=== PATIENT | female | born 1995 | race Caucasian/White ===

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

== ENCOUNTER 2017-03-02 07:49 | Inpatient (IN) | payer MEDICAID, OTHER ==
[~2017-03-02] VITALS: Ht 167.6 cm; Wt 51.5 kg
[2017-03-02] VITALS (10 sets, daily range): BP systolic 97–143; BP diastolic 53–74; PULSE 117–130; RESP 18–24; TEMP 96.3–98.9; O2SAT 87–92
[~2017-03-02 07:49] MED LIST changes: +ALBU.5I NEB; +AZIT250T3 PO; +PRED20 PO
--- NOTE | 2017-03-02 08:14 | PD ---
HPI Chief Complaint: Respiratory Symptoms Time Seen by Provider: 08:02 Travel History International Travel<30 days: No Contact w/Intl Traveler<30days: No Traveled to known affect area: No History of Present Illness HPI 21-year-old young woman history of asthma with previous ICU admissions presents emergency department complaining of worsening asthma symptoms. She states that over the past week or so since the weather change having progressive worsening trouble with her breathing. She been using her nebulizers at home but hasn't really been helping. She's had a productive cough but no fevers or chills. States it feels similar to her asthma in the past. She has chest tightness. No leg swelling. No abdominal pain, nausea vomiting, or other symptoms. History Past Medical History Narrative Medical Asthma Tetanus Vaccination: < 5 Years Influenza Vaccination: Yes LMP: 02/23/17 : 0 Para: 0 Past Surgical History Surgical History: No Previous Surgery Social History Alcohol Use: No Tobacco Use: No Allergies-Medications (Allergen,Severity, Reaction): Coded Allergies: iodine (Unverified Allergy, Severe, 03/02/17) potassium iodide (Unverified Allergy, Severe, 03/02/17) povidone-iodine (Unverified Allergy, Severe, 03/02/17) sodium iodide (Unverified Allergy, Severe, 03/02/17) sodium iodide (Unverified Allergy, Severe, 03/02/17) Uncoded Allergies: SHELLFISH (Allergy, Severe, Swelling, 09/01/05) Reported Meds & Prescriptions Reported Meds & Active Scripts Active Albuterol Neb (Albuterol Sulfate) 2.5 Mg/0.5 Ml Neb 2.5 Mg NEB Q6HR NEB Note: The Albuterol Sulfate Inhalation Solution is concentrated and must be diluted. Read complete instructions carefully before using. Proventil Hfa 6.7 GM Inh (Albuterol Sulfate) 90 Mcg/Act Aer 1 Puff INH Q4H PRN Reported Singulair (Montelukast Sodium) 10 Mg Tab 10 Mg PO HS Review of Systems Except as stated in HPI: all other systems reviewed are Neg Physical Exam Narrative GENERAL: 21-year-old young woman, anxious, mild respiratory distress. SKIN: Focused skin assessment warm/dry. HEAD: Atraumatic. Normocephalic. EYES: Pupils equal and round. No scleral icterus. No injection or drainage. ENT: No nasal bleeding or discharge. Mucous membranes pink and moist. NECK: Trachea midline. No JVD. CARDIOVASCULAR: Regular rate and rhythm. No murmur appreciated. RESPIRATORY: Mild respiratory distress. Tight wheezing throughout the posterior lung saavedra with prolonged expiratory phase slightly diminished air movement. GASTROINTESTINAL: Abdomen soft, non-tender, nondistended. Hepatic and splenic margins not palpable. MUSCULOSKELETAL: No obvious deformities. No edema. NEUROLOGICAL: Awake and alert. No obvious cranial nerve deficits. Motor grossly within normal limits. Normal speech. PSYCHIATRIC: Anxious appearing. Data Data Last Documented VS Vital Signs Date Time Temp Pulse Resp B/P (MAP) Pulse Ox O2 Delivery O2 Flow Rate FiO2 03/02/17 11:00 91 Nasal Cannula 3.00 03/02/17 07:50 98.9 129 20 143/74 (97) Orders Orders Complete Blood Count With Diff (03/02/17 08:08) Basic Metabolic Panel (Bmp) (03/02/17 08:08) Iv Access Insert/Monitor (03/02/17 08:08) Ecg Monitoring (03/02/17 08:08) Oximetry (03/02/17 08:08) Oxygen Administration (03/02/17 08:08) Sodium Chloride 0.9% Flush (Ns Flush) (03/02/17 08:15) Methylprednisolone So Succ Inj (Solumedr (03/02/17 08:15) Albuterol-Ipratropium Neb (Duoneb Neb) (03/02/17 08:15) Magnesium Sulfate 1 Gm Premix (Magnesium (03/02/17 08:15) Ed Urine Pregnancytest Poc (03/02/17 08:09) Albuterol-Ipratropium Neb (Duoneb Neb) (03/02/17 11:00) Admit Order (Ed Use Only) (03/02/17 ) Place In Observation (03/02/17 ) Vital Signs (Adult) Q4H (03/02/17 11:29) Activity Oob Ad Lyn (03/02/17 11:29) Diet Regular Basic (03/02/17 Lunch) Sodium Chloride 0.9% Flush (Ns Flush) (03/02/17 21:00) Sodium Chloride 0.9% Flush (Ns Flush) (03/02/17 11:30) Albuterol Neb (Albuterol Neb) (03/02/17 11:30) Albuterol-Ipratropium Neb (Duoneb Neb) (03/02/17 16:00) Methylprednisolone So Succ Inj (Solumedr (03/02/17 12:00) Azithromycin (Zithromax) (03/02/17 12:00) Labs Laboratory Tests Test 03/02/17 08:20 White Blood Count 13.5 TH/MM3 Red Blood Count 5.18 MIL/MM3 Hemoglobin 16.0 GM/DL Hematocrit 46.9 % Mean Corpuscular Volume 90.5 FL Mean Corpuscular Hemoglobin 30.9 PG Mean Corpuscular Hemoglobin Concent 34.2 % Red Cell Distribution Width 13.9 % Platelet Count 274 TH/MM3 Mean Platelet Volume 8.1 FL Neutrophils (%) (Auto) 81.0 % Lymphocytes (%) (Auto) 9.0 % Monocytes (%) (Auto) 9.0 % Eosinophils (%) (Auto) 0.7 % Basophils (%) (Auto) 0.3 % Neutrophils # (Auto) 10.9 TH/MM3 Lymphocytes # (Auto) 1.2 TH/MM3 Monocytes # (Auto) 1.2 TH/MM3 Eosinophils # (Auto) 0.1 TH/MM3 Basophils # (Auto) 0.0 TH/MM3 CBC Comment DIFF FINAL Differential Comment Blood Urea Nitrogen 7 MG/DL Creatinine 0.69 MG/DL Random Glucose 87 MG/DL Calcium Level 9.0 MG/DL Sodium Level 139 MEQ/L Potassium Level 3.9 MEQ/L Chloride Level 108 MEQ/L Carbon Dioxide Level 19.7 MEQ/L Anion Gap 11 MEQ/L Estimat Glomerular Filtration Rate 110 ML/MIN [facility] Medical Decision Making Medical Screen Exam Complete: Yes Emergency Medical Condition: Yes Interpretation(s) LABS: CBC is unremarkable CMP unremarkable Differential Diagnosis Asthma exacerbation, URI, pneumonia, pneumothorax, other Narrative Course Medical decision making INITIAL: 21-year-old young woman presents emergent department arrest or distress suggestive of moderate asthma exacerbation. She is on 2 L and still satting about 92%. She is anxious with mild to moderate respiratory distress. We'll give steroids, bronchodilators, magnesium, hold on chest x-ray or further imaging for now. Reassess. FINAL: Patient with continued oxygen requirement and moderate symptoms, will plan on admission for observation. Physician Communication Physician Communication Spoke with lissette Momin. Diagnosis Primary Impression: Asthma exacerbation Admitting Information Admitting Physician Requests: Observation Miguel Morales MD Mar 02, 2017 08:14
[2017-03-02] MEDS ORDERED: methylPREDNISolone SOD SUCC 125 MG/2 ML VIAL IV PUSH ONE (08:15)
[2017-03-02] MEDS ORDERED: SODIUM CHLORIDE 0.9% FLUSH 10 ML FLUSH IVF PRN (08:15)
[2017-03-02] MEDS: RESP: ALBUTEROL 2.5 MG/IPRATROPIUM 0.5 MG NEB (SCH) INH (08:19)
[2017-03-02] MEDS: MAGNESIUM SULFATE 1 GM PREMIX 100 ML IV SCH ×2 (08:49→09:49)
[2017-03-02 08:55] LABS: AUTOMATED NEUTROPHIL # 10.9 TH/MM3 (1.8-7.7); BASOPHIL % 0.3 % (0.0-2.0); EOSINOPHIL # 0.1 TH/MM3 (0-0.4); EOSINOPHIL % 0.7 % (0.0-4.0); HEMATOCRIT 46.9 % (35.0-46.0); LYMPHOCYTE # 1.2 TH/MM3 (1.0-4.8); MEAN CELL VOLUME 90.5 FL (80.0-100.0); MEAN CORPUSCULAR HEMOGLOBIN 30.9 PG (27.0-34.0); MEAN CORPUSCULAR HGB CONC 34.2 % (32.0-36.0); MEAN PLATELET VOLUME 8.1 FL (7.0-11.0); MONOCYTE # 1.2 TH/MM3 (0-0.9); PLATELET COUNT 274 TH/MM3 (150-450); RED BLOOD COUNT 5.18 MIL/MM3 (4.00-5.30); RED CELL DISTRIBUTION WIDTH 13.9 % (11.6-17.2); WHITE BLOOD COUNT 13.5 TH/MM3 (4.0-11.0)
[2017-03-02 09:18] LABS: BICARBONATE 19.7 MEQ/L (21.0-32.0); CREATININE 0.69 MG/DL (0.50-1.00)
[2017-03-02] MEDS ORDERED: RESP: ALBUTEROL 2.5 MG/IPRATROPIUM 0.5 MG NEB (SCH) NEB ONE (11:00)
[2017-03-02] MEDS ORDERED: RESP: ALBUTEROL 2.5 MG/3 ML NEB (PRN) NEB (11:30)
[2017-03-02] MEDS ORDERED: SODIUM CHLORIDE 0.9% FLUSH 10 ML FLUSH IV FLUSH PRN (11:30)
[2017-03-02] MEDS ORDERED: methylPREDNISolone SOD SUCC 125 MG/2 ML VIAL IV PUSH SCH (12:00)
[2017-03-02] MEDS: AZITHROMYCIN 250 MG TAB PO SCH (12:10)
[2017-03-02] MEDS: RESP: ALBUTEROL 2.5 MG/IPRATROPIUM 0.5 MG NEB (SCH) NEB ×2 (15:27→19:50)
--- NOTE | 2017-03-02 17:16 | HHI.HP ---
[facility] No Primary Care Physician Admission Diagnosis Acute Ashtma Exacerbation Diagnoses: Travel History International Travel<30 Days: No Contact w/Intl Traveler <30 Da: No Traveled to Known Affected Are: No Sepsis Criteria SIRS Criteria (2 or more): Heart rate over 90, WBC > 67560, < 4000 or > 10% bands History of Present Illness 21 yr old pleasant female w PMHx of asthma presents w severe sob since tuesday. 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 She started wheezing and feeling SOB on tuesday. She thinks that the cold weather caused her asthma to flair up. She owns a dog, her father has a cat at home that doesn't usually stay in the house, but mom does have a cat that is in the house. pt states that she has been coughing a lot, has a sore throat, denies any fevers or chills. mild abdominal pain. She has been getting coughing spells which makes her SOB a lot worst. at times gets nauseous from coughing but no vomiting. Sister was recently diagnosed w strep throat. no other sick contacts. Yesterday her SOB was so bad, she did 5-6 breathing treatments w no improvement and also used her albuterol inhaler that she decided to come in today for evaluation. Pt has never been evaluated by a regional economic liaison. Has about 2-3 asthma attacks a year. She was diagnosed w PNA in november of this year. coughing makes her chest hurt. Review of Systems Except as stated in HPI: all other systems reviewed are Neg Past Family Social History Past Medical History asthma Past Surgical History none Reported Medications Reported Meds & Active Scripts Active Albuterol Neb (Albuterol Sulfate) 2.5 Mg/0.5 Ml Neb 2.5 Mg NEB Q6HR NEB Note: The Albuterol Sulfate Inhalation Solution is concentrated and must be diluted. Read complete instructions carefully before using. Proventil Hfa 6.7 GM Inh (Albuterol Sulfate) 90 Mcg/Act Aer 1 Puff INH Q4H PRN Reported Singulair (Montelukast Sodium) 10 Mg Tab 10 Mg PO HS Allergies: Coded Allergies: iodine (Unverified Allergy, Severe, 03/02/17) potassium iodide (Unverified Allergy, Severe, 03/02/17) povidone-iodine (Unverified Allergy, Severe, 03/02/17) sodium iodide (Unverified Allergy, Severe, 03/02/17) sodium iodide (Unverified Allergy, Severe, 03/02/17) Uncoded Allergies: SHELLFISH (Allergy, Severe, Swelling, 09/01/05) Family History mom: healthy father: hx of pericarditis Social History denies any smoking, alcohol use or illegal drug use Physical Exam Vital Signs Vital Signs Date Time Temp Pulse Resp B/P (MAP) Pulse Ox O2 Delivery O2 Flow Rate FiO2 03/02/17 16:30 92 Nasal Cannula 3.00 Humidified 03/02/17 15:29 90 Nasal Cannula 3.00 03/02/17 15:04 98.6 130 24 116/68 (84) 92 03/02/17 13:48 96.3 125 22 113/53 (73) 89 03/02/17 13:27 03/02/17 13:17 92 Nasal Cannula 3.00 03/02/17 11:00 91 Nasal Cannula 3.00 03/02/17 08:20 92 Nasal Cannula 2.00 03/02/17 07:50 98.9 129 20 143/74 (97) 91 Room Air Physical Exam GENERAL: This is a well-nourished, well-developed patient, appears uncomfortable , however able communicate in full sentences. SKIN: No rashes, ecchymoses or lesions. Cool and dry. HEAD: Atraumatic. Normocephalic. No temporal or scalp tenderness. EYES: Pupils equal round and reactive. Extraocular motions intact. ENT: Nose without drainage. Throat without mild erythema, tonsillar hypertrophy but no exudate noted. Uvula midline. Airway patent. NECK: Trachea midline. No JVD or lymphadenopathy. Supple, nontender, no meningeal signs. CARDIOVASCULAR: tachycardic without murmurs, gallops, or rubs. RESPIRATORY: Clear to auscultation. Breath sounds equal bilaterally. expiratory wheezes throughout GASTROINTESTINAL: Abdomen soft, non-tender, nondistended. No palpable masses. No guarding. MUSCULOSKELETAL: Extremities without edema. No joint tenderness, effusion, or edema noted. No calf tenderness. Negative Homans sign bilaterally. NEUROLOGICAL: Awake and alert. Cranial nerves II through XII intact. Motor and sensory grossly within normal limits. Five out of 5 muscle strength in all muscle groups. Normal speech. Laboratory Laboratory Tests Test 03/02/17 08:20 White Blood Count 13.5 Red Blood Count 5.18 Hemoglobin 16.0 Hematocrit 46.9 Mean Corpuscular Volume 90.5 Mean Corpuscular Hemoglobin 30.9 Mean Corpuscular Hemoglobin Concent 34.2 Red Cell Distribution Width 13.9 Platelet Count 274 Mean Platelet Volume 8.1 Neutrophils (%) (Auto) 81.0 Lymphocytes (%) (Auto) 9.0 Monocytes (%) (Auto) 9.0 Eosinophils (%) (Auto) 0.7 Basophils (%) (Auto) 0.3 Neutrophils # (Auto) 10.9 Lymphocytes # (Auto) 1.2 Monocytes # (Auto) 1.2 Eosinophils # (Auto) 0.1 Basophils # (Auto) 0.0 CBC Comment DIFF FINAL Differential Comment Blood Urea Nitrogen 7 Creatinine 0.69 Random Glucose 87 Calcium Level 9.0 Sodium Level 139 Potassium Level 3.9 Chloride Level 108 Carbon Dioxide Level 19.7 Anion Gap 11 Estimat Glomerular Filtration Rate 110 Result Diagram: 03/02/1781903/02/17819 Caprini VTE Risk Assessment Caprini VTE Risk Assessment: No/Low Risk (score <= 1) Caprini Risk Assessment Model Point Value = 1 Point Value = 2 Point Value = 3 Point Value = 5 Age 41-60 Minor surgery BMI > 25 kg/m2 Swollen legs Varicose veins or History of unexplained or recurrent spontaneous Oral contraceptives or hormone replacement Sepsis (< 1 month) Serious lung disease, including pneumonia (< 1 month) Abnormal pulmonary function Acute myocardial infarction Congestive heart failure (< 1 month) History of inflammatory bowel disease Medical patient at bed rest Age 61-74 Arthroscopic surgery Major open surgery (> 45 min) Laparoscopic surgery (> 45 min) Malignancy Confined to bed (> 72 hours) Immobilizing plaster cast Central venous access Age >= 75 History of VTE Family history of VTE Factor V Leiden Prothrombin [id number] Lupus anticoagulant Anticardiolipin antibodies Elevated serum homocysteine Heparin-induced thrombocytopenia Other congenital or acquired thrombophilia Stroke (< 1 month) Elective arthroplasty Hip, pelvis, or leg fracture Acute spinal cord injury (< 1 month) Prophylaxis Regimen Total Risk Factor Score Risk Level Prophylaxis Regimen 0-1 Low Early ambulation 2 Moderate Order ONE of the following: *Sequential Compression Device (SCD) *Heparin 5000 units SQ BID 3-4 Higher Order ONE of the following medications: *Heparin 5000 units SQ TID *Enoxaparin/Lovenox 40 mg SQ daily (WT < 150 kg, CrCl > 30 mL/min) *Enoxaparin/Lovenox 30 mg SQ daily (WT < 150 kg, CrCl > 10-29 mL/min) *Enoxaparin/Lovenox 30 mg SQ BID (WT < 150 kg, CrCl > 30 mL/min) AND/OR *Sequential Compression Device (SCD) 5 or more Highest Order ONE of the following medications: *Heparin 5000 units SQ TID (Preferred with Epidurals) *Enoxaparin/Lovenox 40 mg SQ daily (WT < 150 kg, CrCl > 30 mL/min) *Enoxaparin/Lovenox 30 mg SQ daily (WT < 150 kg, CrCl > 10-29 mL/min) *Enoxaparin/Lovenox 30 mg SQ BID (WT < 150 kg, CrCl > 30 mL/min) AND *Sequential Compression Device (SCD) Assessment and Plan Problem List: (1) Asthma exacerbation ICD Code: J45.901 - Unspecified asthma with (acute) exacerbation Status: Acute (2) Nausea & vomiting ICD Code: R11.2 - Nausea with vomiting, unspecified Status: Acute Assessment and Plan asthma exacerbation: SOB and wheezing x 3 days, s/p 5-6 breathing treatments at home w not much improvement. Received magnesium, duoneb and solu-medrol in the ED. Continue breathing treatments scheduled and prn, solumedrol 40mg IV q6hrs, start her on azithromycin 500mg po daily x 5 days. I discussed the case w Dr. Funez, regional economic liaison public relations assistant. He will evaluate the patient in the morning. continue supplemental oxygen as needed to maintain sats>92%. Pt able to speak in full sentences at this time. States she feels better but still w SOB. antitussive meds in place. Pt may need a walk test prior to discharge. Would benefit from PFTs once exacerbation resolved. check chest x-ray. if worsening get ABG's sore throat: sister diagnosed w strep throat. check Group A strep/cultures, although on exam no exudates noted but tonssils are enlarged and mildly erythematous. on azithro for now. nausea: zofran prn DVT: encourage ambulation Code Status full Discussed Condition With patient, RN, Dr. Funez and pt's father Tracey Alcala MD Mar 02, 2017 17:16
--- NOTE | 2017-03-02 17:59 | RADRPT ---
EXAM DATE/TIME: 03/02/2017 17:17 [facility] COMPARISON: CHEST SINGLE AP, December 19, 2016, 9:59. INDICATIONS : Short of breath. MEDICAL HISTORY : Asthma. Pneumonia. SURGICAL HISTORY : None. ENCOUNTER: Initial ACUITY: 1 day PAIN SCORE: 0/10 LOCATION: Bilateral chest FINDINGS: A single view of the chest demonstrates the lungs to be symmetrically aerated without evidence of mas s, infiltrate or effusion. The cardiomediastinal contours are unremarkable. Osseous structures are intact. Nipple rings. CONCLUSION: No acute disease. Damon Gutiérrez MD FACR on March 02, 2017 at 17:57 Board Certified Radiologist. This report was verified electronically.
[2017-03-02] MEDS ORDERED: guaiFENesin SOLUTION 200 MG/10 ML CUP PO PRN (18:00)
[2017-03-02] MEDS: methylPREDNISolone SOD SUCC 40 MG/1 ML VIAL IV PUSH SCH ×2 (18:00→23:51)
[2017-03-02] MEDS: DIPHENHY/LIDO/MAG/ALUM MOUTHWASH (Adult/Peds) 60 ML BTL SWISH-SWAL SCH (21:36)
[2017-03-02] MEDS: SODIUM CHLORIDE 0.9% FLUSH 10 ML FLUSH IV FLUSH SCH (21:37)
[2017-03-03] VITALS (9 sets, daily range): BP systolic 94–133; BP diastolic 55–70; PULSE 64–109; RESP 15–24; TEMP 96.9–98.2; O2SAT 89–96
[2017-03-03] MEDS: RESP: ALBUTEROL 2.5 MG/IPRATROPIUM 0.5 MG NEB (SCH) NEB ×4 (03:02→19:28)
[2017-03-03] MEDS: methylPREDNISolone SOD SUCC 40 MG/1 ML VIAL IV PUSH SCH ×4 (06:01→23:45)
--- NOTE | 2017-03-03 06:08 | MB ---
cc: Christine MERRILL M.D. 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 She has had several exacerbations this year including four emergency room visits since May. She had pneumonia in September of last year and again in November of this year. Her typical regimen has been albuterol. She is on Singulair. She has used Advair and other inhaled steroids over the course of her life but in the last 2 years has not been on a consistent inhaled steroid regimen. She has had a cough, minimal sputum, clear. No hemoptysis. No purulent sputum. No fever. This illness has been over the course of the last four or five days. She was not responding to her albuterol nebulizer which is why she came to the emergency room. In early childhood coordinator she was tested for allergies. She was allergic to dust. She has had clinical symptoms related to shellfish with swelling and asthma. She avoids those. She has never been in respiratory failure related to asthma. PAST SURGICAL HISTORY No prior surgeries. PAST MEDICAL HISTORY No other medical illnesses. FAMILY HISTORY Parents both alive and well. A sister with some mild allergies. REVIEW OF SYSTEMS No frontal headaches. No significant sinus congestion. No prior history of sinus disease. No nausea or vomiting. Of significance, she does get indigestion periodically. No history of ulcer disease. No recent change in bowel habits. No swelling. SOCIAL HISTORY She has never smoked. Denies alcohol or illicit drug use although her Dad is in the room at the time of this interview so I will ask her those privately if I can. PHYSICAL EXAMINATION GENERAL: Awake, alert, comfortable, afebrile. VITAL SIGNS: Respirations 18-20, pulse is 100 and regular, O2 sat is 92% on 2-3 liters nasal. HEENT: No sinus tenderness to percussion. Mucous membranes are moist. NECK: Neck veins are flat. No adenopathy in the neck or supraclavicular region. LUNGS: Diffuse wheezing. Mild to moderate, without congestion. HEART: Regular rhythm. No harsh murmur. ABDOMEN: Soft. EXTREMITIES: No peripheral edema, calf tenderness or clubbing. CHEST X-RAY Clear. LABORATORY DATA Throat cultures pending. White count is 13.5, hemoglobin 16. DISCUSSION Ms. Black presents with an asthma exacerbation. She is on no inhaled steroid at this point and we discussed the importance of that going forward particularly in light of the fairly frequent exacerbations. We will also check peak flows and tomorrow I will do a simple spirometry to see what her baseline is at present. That will help determine when she could be discharged too. We will continue aerosol therapy with the Zithromax and IV corticosteroids for now and tomorrow I will start her on Symbicort. I emphasized to she and her father who is at the bedside tonight that she will need consistent followup and consistent use of inhaled corticosteroid at the present. They are in the midst of arranging for a new primary care and she has Medicaid pending. Case management is involved trying to help them with some medications until she gets her insurance. R. MD TERE [place]/BRISEYDA /6:28 PM /5:57 AM
[2017-03-03] MEDS: AZITHROMYCIN 250 MG TAB PO SCH (08:27)
[2017-03-03] MEDS: BUDESONIDE-FORMOTEROL 160/4.5 MCG INHALER INH SCH ×2 (08:27→22:24)
[2017-03-03] MEDS: DIPHENHY/LIDO/MAG/ALUM MOUTHWASH (Adult/Peds) 60 ML BTL SWISH-SWAL SCH ×4 (08:28→21:52)
[2017-03-03] MEDS: SODIUM CHLORIDE 0.9% FLUSH 10 ML FLUSH IV FLUSH SCH ×2 (08:29→21:52)
[2017-03-03] MEDS ORDERED: INFLUENZA VIRUS VACCINE (QUADRIVALENT) 0.5 ML SYR IM ONE (10:00)
--- NOTE | 2017-03-03 10:04 | HHI.PR ---
Subjective Remarks Follow-up for asthma exacerbation. Patient is currently doing well. Denies any chest pain, shortness of breath, fever or chills. However without supplemental oxygen her oxygen saturation drops to 88%. She is requiring 2-3 L of oxygen via nasal cannula. Objective Vitals Vital Signs Date Time Temp Pulse Resp B/P (MAP) Pulse Ox O2 Delivery O2 Flow Rate FiO2 03/03/17 09:06 3.00 03/03/17 07:59 90 Nasal Cannula 4.00 03/03/17 07:49 98.0 109 24 106/65 (79) 89 03/03/17 04:03 98.2 104 20 94/55 (68) 92 03/02/17 23:56 92 03/02/17 23:42 97.9 117 20 97/53 (68) 87 03/02/17 21:05 98.2 127 18 108/56 (73) 92 03/02/17 19:56 92 Nasal Cannula 3.00 03/02/17 19:00 92 Nasal Cannula 2.00 03/02/17 16:30 92 Nasal Cannula 3.00 Humidified 03/02/17 15:29 90 Nasal Cannula 3.00 03/02/17 15:04 98.6 130 24 116/68 (84) 92 03/02/17 13:48 96.3 125 22 113/53 (73) 89 03/02/17 13:27 03/02/17 13:17 92 Nasal Cannula 3.00 03/02/17 11:00 91 Nasal Cannula 3.00 I/O 03/02/17 03/02/17 03/02/17 03/03/17 03/03/17 03/03/17 07:00 15:00 23:00 07:00 15:00 23:00 Intake Total 100 ml Balance 100 ml Intake IV Total 100 ml Result Diagram: 03/02/17 0820 03/02/17 0820 Imaging Last Impressions Chest X-Ray 03/02/17 0000 Signed Impressions: Service Date/Time: Thursday, March 02, 2017 17:17 - CONCLUSION: No acute disease. Damon Gutiérrez MD FACR Objective Remarks GENERAL: Alert, oriented 3, NAD. SKIN: Warm and dry. HEAD: Normocephalic. EYES: No scleral icterus. No injection or drainage. NECK: Supple, trachea midline. No JVD or lymphadenopathy. CARDIOVASCULAR: Regular rate and rhythm without murmurs, gallops, or rubs. RESPIRATORY: Breath sounds equal bilaterally. No accessory muscle use. No appreciable wheezing. GASTROINTESTINAL: Abdomen soft, non-tender, nondistended. MUSCULOSKELETAL: No cyanosis, or edema. BACK: Nontender without obvious deformity. No CVA tenderness. A/P Problem List: (1) Asthma exacerbation ICD Code: J45.901 - Unspecified asthma with (acute) exacerbation Status: Acute (2) Nausea & vomiting ICD Code: R11.2 - Nausea with vomiting, unspecified Status: Acute Assessment and Plan Ms. Black is a pleasant 21-year-old female with a history of asthma who presented to the emergency department on 03/02/2017 due to shortness of breath. She started wheezing and feeling shortness of breath on Tuesday, 2016. Despite receiving 5-6 breathing treatments and using her albuterol inhaler she was still short of breath which prompted her to come to the emergency department. - Acute asthma exacerbation - Appreciate pulmonology (Dr. Funez) input. - Patient is currently on azithromycin 500 mg daily, DuoNeb every 6 hours, Symbicort. - Patient is also on Solu Medrol 60 mg IV every 12 hours - Pulmonary function test done today. - Continue supplemental oxygen to keep O2 saturation above 90%. - Discussed with Dr. Funez. Since patient remains hypoxic on room air, we' ll admit patient for continued treatments. - If there is no improvement within next 1-2 days, patient may need CT scan of her chest. Full code. Ambulation. Discussed with Dr. Funez. Luiza Major DO Mar 03, 2017 10:04
[2017-03-04] VITALS (7 sets, daily range): BP systolic 93–103; BP diastolic 50–58; PULSE 76–97; RESP 15–19; TEMP 96.2–98.1; O2SAT 93–95
[2017-03-04] MEDS: RESP: ALBUTEROL 2.5 MG/IPRATROPIUM 0.5 MG NEB (SCH) NEB ×4 (04:07→19:38)
[2017-03-04] MEDS: methylPREDNISolone SOD SUCC 40 MG/1 ML VIAL IV PUSH SCH ×3 (05:34→17:00)
[2017-03-04] MEDS: BUDESONIDE-FORMOTEROL 160/4.5 MCG INHALER INH SCH ×2 (08:33→20:32)
[2017-03-04] MEDS: AZITHROMYCIN 250 MG TAB PO SCH (08:33)
[2017-03-04] MEDS: DIPHENHY/LIDO/MAG/ALUM MOUTHWASH (Adult/Peds) 60 ML BTL SWISH-SWAL SCH ×4 (08:34→20:32)
[2017-03-04] MEDS: SODIUM CHLORIDE 0.9% FLUSH 10 ML FLUSH IV FLUSH SCH ×2 (08:35→20:35)
[2017-03-04] MEDS ORDERED: PNEUMOCOCCAL POLYVALENT INJ 25 MCG/0.5 ML SYR IM ONE (10:00)
--- NOTE | 2017-03-04 12:54 | HHI.PR ---
Subjective Remarks Follow up for asthma exacerbation. Patient is resting in bed well. She is still requiring 2L of O2 to maintain O2 sat > 90%. Objective Vitals Vital Signs Date Time Temp Pulse Resp B/P (MAP) Pulse Ox O2 Delivery O2 Flow Rate FiO2 03/04/17 12:00 96.2 87 18 93/52 (66) 94 03/04/17 08:30 Nasal Cannula 4.00 03/04/17 08:23 95 Nasal Cannula 3.00 03/04/17 08:00 97.7 95 19 103/58 (73) 94 03/04/17 04:00 96.2 76 15 100/56 (71) 93 03/04/17 01:16 Nasal Cannula 4.00 03/03/17 23:59 97.8 73 18 98/60 (73) 95 03/03/17 19:28 96 Nasal Cannula 4.00 03/03/17 19:00 98.0 73 18 112/70 (84) 92 03/03/17 18:37 90 Nasal Cannula 4.00 03/03/17 16:15 97.7 93 18 102/55 (71) 90 03/03/17 16:00 98.1 103 16 108/58 (75) 94 I/O 03/03/17 03/03/17 03/03/17 03/04/17 03/04/17 03/04/17 07:00 15:00 23:00 07:00 15:00 23:00 Intake Total 480 ml 480 ml Balance 480 ml 480 ml Intake Oral 480 ml 480 ml # Voids 3 2 # Bowel Movements 1 0 Result Diagram: 03/02/17 0820 03/02/17 0820 Imaging Last Impressions Chest X-Ray 03/02/17 0000 Signed Impressions: Service Date/Time: Thursday, March 02, 2017 17:17 - CONCLUSION: No acute disease. Damon Gutiérrez MD FACR Objective Remarks GENERAL: Alert, oriented 3, NAD. SKIN: Warm and dry. HEAD: Normocephalic. EYES: No scleral icterus. No injection or drainage. NECK: Supple, trachea midline. No JVD or lymphadenopathy. CARDIOVASCULAR: Regular rate and rhythm without murmurs, gallops, or rubs. RESPIRATORY: Breath sounds equal bilaterally. No accessory muscle use. No appreciable wheezing. GASTROINTESTINAL: Abdomen soft, non-tender, nondistended. MUSCULOSKELETAL: No cyanosis, or edema. BACK: Nontender without obvious deformity. No CVA tenderness. Procedures None. A/P Problem List: (1) Asthma exacerbation ICD Code: J45.901 - Unspecified asthma with (acute) exacerbation Status: Acute (2) Nausea & vomiting ICD Code: R11.2 - Nausea with vomiting, unspecified Status: Acute Assessment and Plan Ms. Black is a pleasant 21-year-old female with a history of asthma who presented to the emergency department on 03/02/2017 due to shortness of breath. She started wheezing and feeling shortness of breath on Tuesday, 2016. Despite receiving 5-6 breathing treatments and using her albuterol inhaler she was still short of breath which prompted her to come to the emergency department. - Acute asthma exacerbation - Appreciate pulmonology (Dr. Funez) input. - Patient is currently on azithromycin 500 mg daily, DuoNeb every 6 hours, Symbicort. - Patient is also on Solu Medrol 60 mg IV every 12 hours - Pulmonary function test shows significantly reduced FVC FEV1. - Continue supplemental oxygen to keep O2 saturation above 90%. - Discussed with Dr. Funez. Will obtain ABG in room air. - Continue to monitor with Peak Flow meter. - IF no improvement in 1-2 days, consider CT chest per recommendations by Dr. Funez. Full code. Ambulation. Discussed with Dr. Damon Funez (Pulmonology). Discussed with Dr. Funez. Luiza Major DO Mar 04, 2017 12:54
[2017-03-04 14:28] LABS: AUTOMATED NEUTROPHIL # 17.4 TH/MM3 (1.8-7.7); BASOPHIL % 0.1 % (0.0-2.0); HEMOGLOBIN 15.1 GM/DL (11.6-15.3); LYMPH % 3.5 % (9.0-44.0); LYMPHOCYTE # 0.7 TH/MM3 (1.0-4.8); MEAN CELL VOLUME 92.3 FL (80.0-100.0); MEAN CORPUSCULAR HGB CONC 33.6 % (32.0-36.0); MEAN PLATELET VOLUME 7.9 FL (7.0-11.0); MONO % 1.9 % (0.0-8.0); MONOCYTE # 0.3 TH/MM3 (0-0.9); NEUT % 94.5 % (16.0-70.0); PLATELET COUNT 292 TH/MM3 (150-450); RED BLOOD COUNT 4.88 MIL/MM3 (4.00-5.30); RED CELL DISTRIBUTION WIDTH 14.3 % (11.6-17.2); WHITE BLOOD COUNT 18.5 TH/MM3 (4.0-11.0)
[2017-03-05] VITALS (7 sets, daily range): BP systolic 93–116; BP diastolic 52–56; PULSE 70–100; RESP 17–18; TEMP 96.5–98.2; O2SAT 93–95
[2017-03-05] MEDS: methylPREDNISolone SOD SUCC 40 MG/1 ML VIAL IV PUSH SCH ×3 (00:03→12:00)
[2017-03-05] MEDS: RESP: ALBUTEROL 2.5 MG/IPRATROPIUM 0.5 MG NEB (SCH) NEB ×4 (04:18→20:57)
[2017-03-05] MEDS: DIPHENHY/LIDO/MAG/ALUM MOUTHWASH (Adult/Peds) 60 ML BTL SWISH-SWAL SCH ×4 (08:00→20:38)
[2017-03-05] MEDS: AZITHROMYCIN 250 MG TAB PO SCH (08:10)
[2017-03-05] MEDS: BUDESONIDE-FORMOTEROL 160/4.5 MCG INHALER INH SCH ×2 (08:11→20:37)
[2017-03-05] MEDS: SODIUM CHLORIDE 0.9% FLUSH 10 ML FLUSH IV FLUSH SCH ×2 (08:13→20:37)
--- NOTE | 2017-03-05 12:09 | HHI.PR ---
Subjective Remarks Patient seen and examined. Most recent recorded vitals showed immature 96.5, pulse 100, respiratory rate 18, blood pressure 108/56, pulse ox 94 on room air. Prior to that she was 93 on 4 L nasal cannula. She still requiring IV steroids, explained her that we will transition to by mouth steroids tomorrow with anticipated discharge tomorrow or the next day. She is not happy about not getting to leave but she understands the plan of care. Objective Vitals Vital Signs Date Time Temp Pulse Resp B/P (MAP) Pulse Ox O2 Delivery O2 Flow Rate FiO2 03/05/17 12:01 96.5 100 18 108/56 (73) 94 03/05/17 09:18 94 21 03/05/17 08:04 97.6 86 18 93/53 (66) 93 03/05/17 07:09 Nasal Cannula 4.00 03/05/17 04:19 94 03/05/17 00:00 97.8 84 18 95/55 (68) 95 03/04/17 20:00 98.1 95 16 95/50 (65) 94 03/04/17 19:43 93 21 03/04/17 16:00 98.0 97 18 101/52 (68) 93 I/O 03/04/17 03/04/17 03/04/17 03/05/17 03/05/17 03/05/17 07:00 15:00 23:00 07:00 15:00 23:00 Intake Total 480 ml 360 ml 480 ml 240 ml Balance 480 ml 360 ml 480 ml 240 ml Intake Oral 480 ml 360 ml 480 ml 240 ml # Voids 2 1 2 1 # Bowel Movements 0 0 1 0 Result Diagram: 03/04/17 1410 03/02/17 0820 Imaging Last Impressions Chest X-Ray 03/02/17 0000 Signed Impressions: Service Date/Time: Thursday, March 02, 2017 17:17 - CONCLUSION: No acute disease. Damon Gutiérrez MD FACR Objective Remarks GEN: Well-developed, well-nourished patient. No acute distress. CV: Regular rate and rhythm without obvious murmurs LUNGS: Clear to auscultation bilaterally. Normal respiratory effort. No wheezes , rales, rhonchi. GI: Soft, nontender, nondistended. No palpable masses. Bowel sounds WNL. EXT: No edema. NEURO/PSYCH: Afocal. Awake, alert, and oriented x3. Appropriate insight and judgment. Procedures None. Medications and IVs Current Medications Medications (Trade) Dose Ordered Sig/Kedar Route Start Time Stop Time Status Last Admin (NS Flush) 2 ml BID IV FLUSH 03/02/17 21:00 03/05/17 08:13 (NS Flush) 2 ml UNSCH PRN IV FLUSH 03/02/17 11:30 (Albuterol Neb) 2.5 mg Q2HR NEB PRN NEB 03/02/17 11:30 03/02/17 18:48 (Duoneb Neb) 1 ampule Q6HR NEB NEB 03/02/17 16:00 03/05/17 09:16 (Zithromax) 500 mg DAILY PO 03/02/17 12:00 03/05/17 08:10 (Robitussin Liq) 200 mg Q6H PRN PO 03/02/17 18:00 03/02/17 17:28 (SoluMEDROL INJ) 40 mg Q6H IV PUSH 03/02/17 18:00 03/05/17 06:11 (Magic Mouthwash Pediatric/Adult Liq) 5 ml ACHS SWISH-SWAL 03/02/17 21:00 03/04/17 20:32 (Symbicort 160-4.5 Inh) 2 puff Q12HR INH 03/04/17 21:00 03/05/17 08:11 A/P Problem List: (1) Asthma exacerbation ICD Code: J45.901 - Unspecified asthma with (acute) exacerbation Status: Acute (2) Nausea & vomiting ICD Code: R11.2 - Nausea with vomiting, unspecified Status: Acute Assessment and Plan Ms. Black is a pleasant 21-year-old female with a history of asthma who has been admitted for asthma exacerbation - Acute asthma exacerbation - Appreciate pulmonology (Dr. Funez) input. - Patient is currently on azithromycin 500 mg daily, DuoNeb every 6 hours, Symbicort. - Patient is also on Solu Medrol 60 mg IV every 12 hours will transition to by mouth steroids in a.m. - Pulmonary function test shows significantly reduced FVC FEV1. - Continue supplemental oxygen to keep O2 saturation above 90%. - Discussed with Dr. Funez. Will obtain ABG in room air. - Continue to monitor with Peak Flow meter. - IF no improvement in 1-2 days, consider CT chest per recommendations by Dr. Funez. Full code. Ambulation. Discharge Planning Anticipate discharge next one to 2 days Christopher Washington MD, R3 Mar 05, 2017 12:09
--- NOTE | 2017-03-05 15:42 | HHI.PR ---
Subjective Remarks ALERT NO SOB AT REST Objective Vital Signs Date Time Temp Pulse Resp B/P (MAP) Pulse Ox O2 Delivery O2 Flow Rate FiO2 03/05/17 12:01 96.5 100 18 108/56 (73) 94 03/05/17 09:18 94 21 03/05/17 08:04 97.6 86 18 93/53 (66) 93 03/05/17 07:09 Nasal Cannula 4.00 03/05/17 04:19 94 03/05/17 00:00 97.8 84 18 95/55 (68) 95 03/04/17 20:00 98.1 95 16 95/50 (65) 94 03/04/17 19:43 93 21 03/04/17 16:00 98.0 97 18 101/52 (68) 93 I/O 03/04/17 03/04/17 03/04/17 03/05/17 03/05/17 03/05/17 07:00 15:00 23:00 07:00 15:00 23:00 Intake Total 480 ml 360 ml 480 ml 240 ml Balance 480 ml 360 ml 480 ml 240 ml Intake Oral 480 ml 360 ml 480 ml 240 ml # Voids 2 1 2 1 # Bowel Movements 0 0 1 0 Result Diagram: 03/04/17 1410 03/02/17 0820 Objective Remarks GENERAL: SKIN: Warm and dry. HEAD: Atraumatic. Normocephalic. EYES: Pupils equal and round. No scleral icterus. No injection or drainage. ENT: No nasal bleeding or discharge. Mucous membranes pink and moist. NECK: Trachea midline. No JVD. CARDIOVASCULAR: Regular rate and rhythm. RESPIRATORY: No accessory muscle use. Clear to auscultation. Breath sounds equal bilaterally. GASTROINTESTINAL: Abdomen soft, non-tender, nondistended. Hepatic and splenic margins not palpable. MUSCULOSKELETAL: Extremities without clubbing, cyanosis, or edema. No obvious deformities. NEUROLOGICAL: Awake and alert. No obvious cranial nerve deficits. Motor grossly within normal limits. Five out of 5 muscle strength in the arms and legs. Normal speech. PSYCHIATRIC: Appropriate mood and affect; insight and judgment normal. 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
[2017-03-05] MEDS ORDERED: predniSONE 20 MG TAB PO SCH (18:00)
[2017-03-06 00:25] VITALS: BP 114/59; PULSE 73; RESP 17; TEMP 97.6; O2SAT 95
[2017-03-06] MEDS: RESP: ALBUTEROL 2.5 MG/IPRATROPIUM 0.5 MG NEB (SCH) NEB ×2 (04:12→09:19)
[2017-03-06 04:14] VITALS: O2SAT 92
[2017-03-06 07:33] VITALS: BP 95/61; PULSE 80; RESP 16; TEMP 97.4; O2SAT 95
[2017-03-06] MEDS: DIPHENHY/LIDO/MAG/ALUM MOUTHWASH (Adult/Peds) 60 ML BTL SWISH-SWAL SCH (08:00)
[2017-03-06] MEDS: SODIUM CHLORIDE 0.9% FLUSH 10 ML FLUSH IV FLUSH SCH (08:28)
[2017-03-06] MEDS: AZITHROMYCIN 250 MG TAB PO SCH (08:28)
[2017-03-06] MEDS: BUDESONIDE-FORMOTEROL 160/4.5 MCG INHALER INH SCH (08:30)
[2017-03-06 09:20] VITALS: O2SAT 94
[2017-03-06] MEDS ORDERED: PRED10PA PO (10:29)
[2017-03-06] MEDS ORDERED: AZIT250T3 PO (10:29)
[2017-03-06] MEDS ORDERED: MONT10TA2 PO (10:29)
--- NOTE | 2017-03-06 10:30 | HHI.DCPOC ---
Discharge Care Plan Diagnosis: (1) Asthma exacerbation Goals to Promote Your Health * To prevent worsening of your condition and complications * To maintain your health at the optimal level Directions to Meet Your Goals Take your medications as prescribed Follow your dietary instruction Follow activity as directed Keep your appointments as scheduled Take your immunizations and boosters as scheduled If your symptoms worsen call your PCP, if no PCP go to Urgent Care Center or Emergency Room Smoking is Dangerous to Your Health. Avoid second hand smoke Call the 24-hour hour crisis hotline for domestic abuse at Christopher Washington MD, R3 Mar 06, 2017 10:30
--- NOTE | 2017-03-06 10:30 | HHI.DCPOC ---
Discharge Care Plan Diagnosis: (1) Asthma exacerbation Goals to Promote Your Health * To prevent worsening of your condition and complications * To maintain your health at the optimal level Directions to Meet Your Goals Take your medications as prescribed Follow your dietary instruction Follow activity as directed Keep your appointments as scheduled Take your immunizations and boosters as scheduled If your symptoms worsen call your PCP, if no PCP go to Urgent Care Center or Emergency Room Smoking is Dangerous to Your Health. Avoid second hand smoke Call the 24-hour hour crisis hotline for domestic abuse at Christopher Washington MD, R3 Mar 06, 2017 10:30
--- NOTE | 2017-03-06 10:30 | HHI.DCPOC ---
Discharge Care Plan Diagnosis: (1) Asthma exacerbation Goals to Promote Your Health * To prevent worsening of your condition and complications * To maintain your health at the optimal level Directions to Meet Your Goals Take your medications as prescribed Follow your dietary instruction Follow activity as directed Keep your appointments as scheduled Take your immunizations and boosters as scheduled If your symptoms worsen call your PCP, if no PCP go to Urgent Care Center or Emergency Room Smoking is Dangerous to Your Health. Avoid second hand smoke Call the 24-hour hour crisis hotline for domestic abuse at Christopher Washington MD, R3 Mar 06, 2017 10:30
--- NOTE | 2017-03-06 10:33 | HHI.DS ---
Discharge Summary Admission Date Mar 03, 2017 at 13:28 Discharge Date: Mar 06, 2017 Admitting Diagnosis Acute Ashtma Exacerbation (1) Asthma exacerbation Diagnosis: Principal ICD Codes: J45.901 - Unspecified asthma with (acute) exacerbation Status: Acute (2) Nausea & vomiting Diagnosis: Secondary ICD Codes: R11.2 - Nausea with vomiting, unspecified Status: Acute Procedures none Brief History 21 yr old pleasant female w PMHx of asthma presents w severe sob since tuesday. 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 She started wheezing and feeling SOB on tuesday. She thinks that the cold weather caused her asthma to flair up. She owns a dog, her father has a cat at home that doesn't usually stay in the house, but mom does have a cat that is in the house. pt states that she has been coughing a lot, has a sore throat, denies any fevers or chills. mild abdominal pain. She has been getting coughing spells which makes her SOB a lot worst. at times gets nauseous from coughing but no vomiting. Sister was recently diagnosed w strep throat. no other sick contacts. Yesterday her SOB was so bad, she did 5-6 breathing treatments w no improvement and also used her albuterol inhaler that she decided to come in today for evaluation. Pt has never been evaluated by a outsole tacker. Has about 2-3 asthma attacks a year. She was diagnosed w PNA in november of this year. coughing makes her chest hurt. CBC/BMP: 03/04/17 1410 03/02/17 0820 Significant Findings Laboratory Tests Test 03/04/17 14:10 03/04/17 14:26 White Blood Count 18.5 TH/MM3 (4.0-11.0) Neutrophils (%) (Auto) 94.5 % (16.0-70.0) Lymphocytes (%) (Auto) 3.5 % (9.0-44.0) Neutrophils # (Auto) 17.4 TH/MM3 (1.8-7.7) Lymphocytes # (Auto) 0.7 TH/MM3 (1.0-4.8) Arterial Blood pH 7.46 (7.380-7.420) Arterial Blood Partial Pressure CO2 34 mmHg (38-42) Imaging Last Impressions Chest X-Ray 03/02/17 0000 Signed Impressions: Service Date/Time: Thursday, March 02, 2017 17:17 - CONCLUSION: No acute disease. Damon Gutiérrez MD [facility] Hospital Course Patient was admitted on 03/03/17 for acute asthma exacerbation. It took several days of steroids and adjusting her asthma medication regimen in order to stabilize the patient. It was determined by 03/06/17 that she was stable for discharge home with by mouth steroids as well as albuterol treatments and Symbicort. She is very excited to go home and felt that she had returned to her baseline by that time. Pt Condition on Discharge: Stable Discharge Disposition: Discharge Home Discharge Instructions DIET: Follow Instructions for: As Tolerated, No Restrictions Activities you can perform: Regular-No Restrictions Follow up Referrals: PCP Follow-up - 1 Week with Aamir Gallo MD Pulmonology - 1 Week with Jean-Claude Bermeo MD New Medications: Prednisone (21) 10 mg tab Dose Pack (Prednisone (21) 10 mg tab Dose Pack) 10 Mg Pack 10 MG PO DIRECTED for Inflammation, #1 DSPK 0 Refills Azithromycin (Azithromycin) 250 Mg Tab 500 MG PO DAILY, #5 TAB Continued Medications: Albuterol 6.7 GM Inh (Proventil Hfa 6.7 GM Inh) 90 Mcg/Act Aer 1 PUFF INH Q4H PRN for SHORTNESS OF BREATH, #1 INHALER 0 Refills Albuterol Neb (Albuterol Neb) 2.5 Mg/0.5 Ml Neb 2.5 MG NEB Q6HR NEB, #1 BOX 1 Refill Note: The Albuterol Sulfate Inhalation Solution is concentrated and must be diluted. Read complete instructions carefully before using. Montelukast (Singulair) 10 Mg Tab 10 MG PO HS, #30 TAB 0 Refills (This prescription has been renewed) Christopher Washington MD, R3 Mar 06, 2017 10:33
--- NOTE | 2017-03-06 10:33 | HHI.DS ---
Discharge Summary Admission Date Mar 03, 2017 at 13:28 Discharge Date: Mar 06, 2017 Admitting Diagnosis Acute Ashtma Exacerbation (1) Asthma exacerbation Diagnosis: Principal ICD Codes: J45.901 - Unspecified asthma with (acute) exacerbation Status: Acute (2) Nausea & vomiting Diagnosis: Secondary ICD Codes: R11.2 - Nausea with vomiting, unspecified Status: Acute Procedures none Brief History 21 yr old pleasant female w PMHx of asthma presents w severe sob since tuesday. 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 She started wheezing and feeling SOB on tuesday. She thinks that the cold weather caused her asthma to flair up. She owns a dog, her father has a cat at home that doesn't usually stay in the house, but mom does have a cat that is in the house. pt states that she has been coughing a lot, has a sore throat, denies any fevers or chills. mild abdominal pain. She has been getting coughing spells which makes her SOB a lot worst. at times gets nauseous from coughing but no vomiting. Sister was recently diagnosed w strep throat. no other sick contacts. Yesterday her SOB was so bad, she did 5-6 breathing treatments w no improvement and also used her albuterol inhaler that she decided to come in today for evaluation. Pt has never been evaluated by a box annealer. Has about 2-3 asthma attacks a year. She was diagnosed w PNA in november of this year. coughing makes her chest hurt. CBC/BMP: 03/04/17 1410 03/02/17 0820 Significant Findings Laboratory Tests Test 03/04/17 14:10 03/04/17 14:26 White Blood Count 18.5 TH/MM3 (4.0-11.0) Neutrophils (%) (Auto) 94.5 % (16.0-70.0) Lymphocytes (%) (Auto) 3.5 % (9.0-44.0) Neutrophils # (Auto) 17.4 TH/MM3 (1.8-7.7) Lymphocytes # (Auto) 0.7 TH/MM3 (1.0-4.8) Arterial Blood pH 7.46 (7.380-7.420) Arterial Blood Partial Pressure CO2 34 mmHg (38-42) Imaging Last Impressions Chest X-Ray 03/02/17 0000 Signed Impressions: Service Date/Time: Thursday, March 02, 2017 17:17 - CONCLUSION: No acute disease. Damon Gutiérrez MD [facility] Hospital Course Patient was admitted on 03/03/17 for acute asthma exacerbation. It took several days of steroids and adjusting her asthma medication regimen in order to stabilize the patient. It was determined by 03/06/17 that she was stable for discharge home with by mouth steroids as well as albuterol treatments and Symbicort. She is very excited to go home and felt that she had returned to her baseline by that time. Pt Condition on Discharge: Stable Discharge Disposition: Discharge Home Discharge Instructions DIET: Follow Instructions for: As Tolerated, No Restrictions Activities you can perform: Regular-No Restrictions Follow up Referrals: PCP Follow-up - 1 Week with Aamir Gallo MD Pulmonology - 1 Week with Jean-Claude Bermeo MD New Medications: Prednisone (21) 10 mg tab Dose Pack (Prednisone (21) 10 mg tab Dose Pack) 10 Mg Pack 10 MG PO DIRECTED for Inflammation, #1 DSPK 0 Refills Azithromycin (Azithromycin) 250 Mg Tab 500 MG PO DAILY, #5 TAB Continued Medications: Albuterol 6.7 GM Inh (Proventil Hfa 6.7 GM Inh) 90 Mcg/Act Aer 1 PUFF INH Q4H PRN for SHORTNESS OF BREATH, #1 INHALER 0 Refills Albuterol Neb (Albuterol Neb) 2.5 Mg/0.5 Ml Neb 2.5 MG NEB Q6HR NEB, #1 BOX 1 Refill Note: The Albuterol Sulfate Inhalation Solution is concentrated and must be diluted. Read complete instructions carefully before using. Montelukast (Singulair) 10 Mg Tab 10 MG PO HS, #30 TAB 0 Refills (This prescription has been renewed) Christopher Washington MD, R3 Mar 06, 2017 10:33
--- NOTE | 2017-03-06 10:33 | HHI.DS ---
Discharge Summary Admission Date Mar 03, 2017 at 13:28 Discharge Date: Mar 06, 2017 Admitting Diagnosis Acute Ashtma Exacerbation (1) Asthma exacerbation Diagnosis: Principal ICD Codes: J45.901 - Unspecified asthma with (acute) exacerbation Status: Acute (2) Nausea & vomiting Diagnosis: Secondary ICD Codes: R11.2 - Nausea with vomiting, unspecified Status: Acute Procedures none Brief History 21 yr old pleasant female w PMHx of asthma presents w severe sob since tuesday. 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 She started wheezing and feeling SOB on tuesday. She thinks that the cold weather caused her asthma to flair up. She owns a dog, her father has a cat at home that doesn't usually stay in the house, but mom does have a cat that is in the house. pt states that she has been coughing a lot, has a sore throat, denies any fevers or chills. mild abdominal pain. She has been getting coughing spells which makes her SOB a lot worst. at times gets nauseous from coughing but no vomiting. Sister was recently diagnosed w strep throat. no other sick contacts. Yesterday her SOB was so bad, she did 5-6 breathing treatments w no improvement and also used her albuterol inhaler that she decided to come in today for evaluation. Pt has never been evaluated by a risk mgr. Has about 2-3 asthma attacks a year. She was diagnosed w PNA in november of this year. coughing makes her chest hurt. CBC/BMP: 03/04/17 1410 03/02/17 0820 Significant Findings Laboratory Tests Test 03/04/17 14:10 03/04/17 14:26 White Blood Count 18.5 TH/MM3 (4.0-11.0) Neutrophils (%) (Auto) 94.5 % (16.0-70.0) Lymphocytes (%) (Auto) 3.5 % (9.0-44.0) Neutrophils # (Auto) 17.4 TH/MM3 (1.8-7.7) Lymphocytes # (Auto) 0.7 TH/MM3 (1.0-4.8) Arterial Blood pH 7.46 (7.380-7.420) Arterial Blood Partial Pressure CO2 34 mmHg (38-42) Imaging Last Impressions Chest X-Ray 03/02/17 0000 Signed Impressions: Service Date/Time: Thursday, March 02, 2017 17:17 - CONCLUSION: No acute disease. Damon Gutiérrze MD [facility] Hospital Course Patient was admitted on 03/03/17 for acute asthma exacerbation. It took several days of steroids and adjusting her asthma medication regimen in order to stabilize the patient. It was determined by 03/06/17 that she was stable for discharge home with by mouth steroids as well as albuterol treatments and Symbicort. She is very excited to go home and felt that she had returned to her baseline by that time. Pt Condition on Discharge: Stable Discharge Disposition: Discharge Home Discharge Instructions DIET: Follow Instructions for: As Tolerated, No Restrictions Activities you can perform: Regular-No Restrictions Follow up Referrals: PCP Follow-up - 1 Week with Aamir Gallo MD Pulmonology - 1 Week with Jean-Claude Bermeo MD New Medications: Prednisone (21) 10 mg tab Dose Pack (Prednisone (21) 10 mg tab Dose Pack) 10 Mg Pack 10 MG PO DIRECTED for Inflammation, #1 DSPK 0 Refills Azithromycin (Azithromycin) 250 Mg Tab 500 MG PO DAILY, #5 TAB Continued Medications: Albuterol 6.7 GM Inh (Proventil Hfa 6.7 GM Inh) 90 Mcg/Act Aer 1 PUFF INH Q4H PRN for SHORTNESS OF BREATH, #1 INHALER 0 Refills Albuterol Neb (Albuterol Neb) 2.5 Mg/0.5 Ml Neb 2.5 MG NEB Q6HR NEB, #1 BOX 1 Refill Note: The Albuterol Sulfate Inhalation Solution is concentrated and must be diluted. Read complete instructions carefully before using. Montelukast (Singulair) 10 Mg Tab 10 MG PO HS, #30 TAB 0 Refills (This prescription has been renewed) Christopher Washington MD, R3 Mar 06, 2017 10:33
--- NOTE | 2017-03-06 10:38 | HHI.PR ---
Subjective Remarks Patient seen and examined this morning. Temperature 97.4, pulse 80, this rate 16, blood pressure 95/61, pulse ox 95 on room air. Patient is demanding to go home and she feels she is completely back to baseline and has no longer having shortness of breath. She would like very much to leave today. She agrees to use her new medications as well as perform a steroid taper, and follow-up with her PCP and personal insurance advisor as an outpatient. Have agreed to discharge her home with scripts for her new breathing treatment regimen as well as a steroid taper. She will also complete her antibiotics as an outpatient. Objective Vitals Vital Signs Date Time Temp Pulse Resp B/P (MAP) Pulse Ox O2 Delivery O2 Flow Rate FiO2 03/06/17 09:20 94 21 03/06/17 07:33 97.4 80 16 95/61 (72) 95 03/06/17 06:43 Room Air 03/06/17 04:14 92 21 03/06/17 00:25 97.6 73 17 114/59 (77) 95 03/05/17 20:35 98.2 70 17 115/56 (75) 95 03/05/17 16:00 97.3 90 18 116/52 (73) 94 03/05/17 12:01 96.5 100 18 108/56 (73) 94 I/O 03/05/17 03/05/17 03/05/17 03/06/17 03/06/17 03/06/17 07:00 15:00 23:00 07:00 15:00 23:00 Intake Total 240 ml 960 ml 480 ml 240 ml Balance 240 ml 960 ml 480 ml 240 ml Intake Oral 240 ml 960 ml 480 ml 240 ml # Voids 1 1 2 2 # Bowel Movements 0 1 0 0 Result Diagram: 03/04/17 1410 03/02/17 0820 Imaging Last Impressions Chest X-Ray 03/02/17 0000 Signed Impressions: Service Date/Time: Thursday, March 02, 2017 17:17 - CONCLUSION: No acute disease. Damon Gutiérrez MD [facility] Objective Remarks GEN: Well-developed, well-nourished patient. No acute distress. CV: Regular rate and rhythm without obvious murmurs LUNGS: Clear to auscultation bilaterally. Normal respiratory effort. No wheezes , rales, rhonchi. GI: Soft, nontender, nondistended. No palpable masses. Bowel sounds WNL. EXT: No edema. NEURO/PSYCH: Afocal. Awake, alert, and oriented x3. Appropriate insight and judgment. Procedures None. Medications and IVs Current Medications Medications (Trade) Dose Ordered Sig/Kedar Route Start Time Stop Time Status Last Admin (NS Flush) 2 ml BID IV FLUSH 03/02/17 21:00 03/05/17 08:13 (NS Flush) 2 ml UNSCH PRN IV FLUSH 03/02/17 11:30 (Albuterol Neb) 2.5 mg Q2HR NEB PRN NEB 03/02/17 11:30 03/02/17 18:48 (Duoneb Neb) 1 ampule Q6HR NEB NEB 03/02/17 16:00 03/06/17 09:19 (Zithromax) 500 mg DAILY PO 03/02/17 12:00 03/06/17 08:28 (Robitussin Liq) 200 mg Q6H PRN PO 03/02/17 18:00 03/02/17 17:28 (Magic Mouthwash Pediatric/Adult Liq) 5 ml ACHS SWISH-SWAL 03/02/17 21:00 03/04/17 20:32 (Symbicort 160-4.5 Inh) 2 puff Q12HR INH 03/04/17 21:00 03/05/17 20:37 (Deltasone) 40 mg DAILY@1800 PO 03/05/17 18:00 03/05/17 17:30 A/P Problem List: (1) Asthma exacerbation ICD Code: J45.901 - Unspecified asthma with (acute) exacerbation Status: Acute (2) Nausea & vomiting ICD Code: R11.2 - Nausea with vomiting, unspecified Status: Acute Assessment and Plan Ms. Black is a pleasant 21-year-old female with a history of asthma who has been admitted for asthma exacerbation - Acute asthma exacerbation - Appreciate pulmonology input. - Patient is currently on azithromycin 500 mg daily, DuoNeb every 6 hours, Symbicort. - Patient is also on prednisone 40 mg daily - Pulmonary function test shows significantly reduced FVC FEV1. - Oxygen saturation above 90% on room air - Continue to monitor with Peak Flow meter. - Anticipate discharge home today with azithromycin, albuterol, Symbicort, and prednisone taper Full code. Ambulation. Discharge Planning Anticipate discharge home today Christopher Washington MD, R3 Mar 06, 2017 10:38
--- NOTE | 2017-03-07 11:02 | RSPPFT ---
DATE OF PROCEDURE: 03/03/17 COMMENTS: VOLUMES DYNAMIC: FVC moderately reduced; FEV1 severely reduced. FLOWS: FEV1% moderately reduced; FEF 25-75 severely reduced. FLOW VOLUME LOOP: IMPRESSION: Severe obstructive ventilatory defect with no significant improvement post-bronchodilator.
== END 2017-03-06 11:57 | disposition home or self-care (01) | DRG 203 ==
LOC: NEPC 07:49 → NEDA 11:32 → NEPFCDU 13:22 → OBSVTOIN 03-03 13:28 → N06A 03-03 18:18
PROVIDERS: ADMIT Hospitalist; ATTEND Hospitalist
DX: J45.901 Unspecified asthma with (acute) exacerbation (principal); R11.2 Nausea with vomiting, unspecified; R09.02 Hypoxemia; Z23 Encounter for immunization; Z87.01 Personal history of pneumonia (recurrent); Z91.013 Allergy to seafood
CPT/HCPCS: 36600; 71010; 80048; 82805; 84702; 85025; 87081; 87880; 90686; 90732; 94060; 94150; 94620; 94640; 94664; 94799; 96374; 96375; 96376; G0378; J2920; J2930; J3475; J7512; J7613; Q2038